=== PATIENT | female | born 1975 | race Caucasian/White ===

== ENCOUNTER 2018-08-07 21:40 | Emergency (ER) | payer BC ==
[2018-08-07] MEDS ORDERED: Ketorolac 60 MG/2 ML SDV IM ONE (22:03)
[2018-08-07] MEDS ORDERED: traMADol 50 MG Tab PO ONE (22:34)
--- NOTE | 2018-08-07 22:42 | EDM.PDOC ---
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 for the weekend alcohol on breath R anterior & lateral rib Pain Score (Numeric/FACES): 10 - Related Data Allergies Allergy/AdvReac Type Severity Reaction Status Date / Time No Known Allergies Allergy Verified 08/07/18 21:49 Home Meds: Home Meds SUMAtriptan 100 mg PO DAILY PRN 04/18/14 [History] traMADol HCl [Tramadol HCl] 50 mg PO Q6H PRN #8 tablet 08/07/18 [Rx] Past Medical History Genitourinary History: Reports: None 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: Musculoskeletal History: Reports: Fracture Other Musculoskeletal History: hx R wrist fx Neurological History: Reports: Cerebral Aneurysms, Migraines Endocrine/Metabolic History: Reports: Obesity/BMI 30+ - Infectious Disease History Infectious Disease History: Reports: Chicken Pox - Past Surgical History HEENT Surgical History: Reports: Adenoidectomy, Tonsillectomy Female Surgical History: Reports: Tubal Ligation Neurological Surgical History: Reports: None Musculoskeletal Surgical History: Reports: None Social & Family History - Family History Family Medical History: Noncontributory - Tobacco Use Smoking Status *Q: Current Every Day Smoker Years of Tobacco use: 20 Packs/Tins Daily: 1 - Caffeine Use Caffeine Use: Reports: Energy Drinks, Soda - Alcohol Use Days Per Week of Alcohol Use: 7 Number of Drinks Per Day: 2 Total Drinks Per Week: 14 - Recreational Drug Use Recreational Drug Use: No ED ROS GENERAL - Review of Systems Review Of Systems: See Below Constitutional: Reports: No Symptoms HEENT: Reports: No Symptoms Respiratory: Reports: No Symptoms Cardiovascular: Reports: No Symptoms Endocrine: Reports: No Symptoms GI/Abdominal: Reports: No Symptoms : Reports: No Symptoms Musculoskeletal: Reports: Other (rib pain) Skin: Reports: No Symptoms Neurological: Reports: No Symptoms Psychiatric: Reports: No Symptoms Hematologic/Lymphatic: Reports: No Symptoms Immunologic: Reports: No Symptoms ED EXAM, GENERAL - Physical Exam Exam: See Below Exam Limited By: No Limitations General Appearance: Alert, WD/WN, Mild Distress Head: Atraumatic, Normocephalic Neck: Normal Inspection, Supple, Non-Tender, Full Range of Motion Respiratory/Chest: No Respiratory Distress, Lungs Clear, Normal Breath Sounds, No Accessory Muscle Use, Chest Non-Tender Cardiovascular: Regular Rate, Rhythm, Other (1+ tender across the lower 25% of the R chest laterally, no STS, no ecchymosis, not localized, sitting awkwardly in w/c, holding hand over side, using ice pack) Course - Vital Signs Last Recorded V/S: Last Vital Signs Temp 36.6 C 08/07/18 21:40 Pulse 95 08/07/18 21:40 Resp 20 08/07/18 21:40 BP 137/62 08/07/18 21:40 Pulse Ox 97 08/07/18 21:40 - Orders/Labs/Meds Orders: Active Orders 24 hr Category Date Time Status Ribs 2V w Chest Rt [CR] Stat Exams 08/07/18 21:58 Taken traMADol [Ultram] Med 08/07/18 22:34 Once 50 mg PO ONETIME ONE Meds: Medications Discontinued Medications Generic Name Dose Route Start Last Admin Trade Name Freq PRN Reason Stop Dose Admin Ketorolac Tromethamine 60 mg 08/07/18 22:03 08/07/18 22:09 Toradol IM 08/07/18 22:04 60 mg ONETIME ONE Administration Departure - Departure Time of Disposition: 22:35 Disposition: Home, Self-Care 01 Condition: Good Clinical Impression: Contusion of rib on right side - Discharge Information *PRESCRIPTION DRUG MONITORING PROGRAM REVIEWED*: Not Applicable *COPY OF PRESCRIPTION DRUG MONITORING REPORT IN PATIENT KENZIE: Not Applicable Prescriptions: traMADol HCl [Tramadol HCl] 50 mg PO Q6H PRN #8 tablet PRN Reason: Pain Instructions: Rib Contusion, Cryotherapy Referrals: Jorge Son MD [Primary Care Provider] - Forms: ED Department Discharge, ED Return to Work/School Form Additional Instructions: For pain and inflammation, take ibuprofen 200 mg 3 tabs and acetaminophen 500 mg 2 tabs 4 times a day for 2 days, longer if needed. For pain, take tramadol 50 mg 1 tab every 6 hours as needed. No alcohol. Use ice pack for 10 minutes every 2 hours for 2 days. See your doctor in 4 days. No work tomorrow. Call your Physician or Return to Emergency Department if: * Your condition worsens in any way. * You develop fever greater than 100.4. * You have vomitting that does not stop with medications. * You have pain that is not controlled with medications. - My Orders Last 24 Hours: My Active Orders 08/07/18 21:58 Ribs 2V w Chest Rt [CR] Stat 08/07/18 22:34 traMADol [Ultram] 50 mg PO ONETIME ONE - Assessment/Plan Last 24 Hours: My Active Orders 08/07/18 21:58 Ribs 2V w Chest Rt [CR] Stat 08/07/18 22:34 traMADol [Ultram] 50 mg PO ONETIME ONE
--- NOTE | 2018-08-08 10:21 | CR ---
INDICATION: Fell in shower. Pain right ribs. RIGHT RIBS WITH CHEST: PA view of the chest was obtained 08/07/18--no comparisons. The heart appeared normal in size and shape. The aorta is minimally tortuous with suggestion of minimal calcification at the arch of the aorta. An active infiltrate, effusion, contusion or pneumothorax was not identified. There is a suggestion of a mild dextroconcave scoliosis of the upper thoracic spine. Increased density is noted overlying the first rib manuveal junctions right greater then left. IMPRESSION: No acute process. RIGHT RIBS: Three views of the right ribs were obtained 08/07/18--no comparisons. No displaced rib fracture or other definite bony abnormality was identified. If occult fracture site is suspected clinically, re-examination in 10-14 days may be helpful. [facility]
== END 2018-08-07 22:46 | disposition home or self-care (01) ==
LOC: FB.ED 21:40
DX: S20.211A Contusion of right front wall of thorax, initial encounter (principal); F17.210 Nicotine dependence, cigarettes, uncomplicated; Z79.899 Other long term (current) drug therapy; Z90.89 Acquired absence of other organs; Z98.890 Other specified postprocedural states; Z98.51 Tubal ligation status; W18.2XXA Fall in (into) shower or empty bathtub, initial encounter; Y93.89 Activity, other specified
CPT/HCPCS: 71101; 96372; 99283; A9270; J1885

== ENCOUNTER 2019-07-30 19:29 | Emergency (ER) | payer BC ==
[2019-07-30] MEDS ORDERED: methylPREDNISolone Sodium Succinate 125 MG/2 ML SDV IM ONE (19:48)
[2019-07-30] MEDS ORDERED: Albuterol/Ipratropium 3.0-0.5 MG/3 ML Neb Soln NEB ONE (19:48)
[2019-07-30] MEDS ORDERED: traMADol 50 MG Tab PO ONE (19:51)
[2019-07-30] MEDS ORDERED: Acetaminophen 500 MG Tab PO ONE (19:51)
[2019-07-30] MEDS ORDERED: Azithromycin 250 MG Tab PO ONE (20:44)
--- NOTE | 2019-07-30 20:50 | EDM.PDOC ---
ED HPI GENERAL MEDICAL PROBLEM - General Stated Complaint: SOB; COUGHING; BLADDER INFECTION Time Seen by Provider: 07/30/19 20:15 Source of Information: Reports: Patient, Family History Limitations: Reports: No Limitations - History of Present Illness INITIAL COMMENTS - FREE TEXT/NARRATIVE: Patient presented to the ED because of 1 week h/o dry cough and for the past 2 days she c/o dyspnea,denies having any fever or chills. She also c/o headache over the frontal area,throbbing,7/10. She take imitrex for her migraine but t didn't work this time. She also of increase frequency,no flank pain or dysuria. 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: Musculoskeletal History: Reports: Fracture Other Musculoskeletal History: hx R wrist fx Neurological History: Reports: Cerebral Aneurysms, Migraines Endocrine/Metabolic History: Reports: Obesity/BMI 30+ - Infectious Disease History Infectious Disease History: Reports: Chicken Pox - Past Surgical History HEENT Surgical History: Reports: Adenoidectomy, Tonsillectomy Female Surgical History: Reports: Tubal Ligation Neurological Surgical History: Reports: None Musculoskeletal Surgical History: Reports: None Social & Family History - Family History Family Medical History: Noncontributory - Caffeine Use Caffeine Use: Reports: Energy Drinks, Soda ED ROS GENERAL - Review of Systems Review Of Systems: See Below Constitutional: Denies: Fever, Chills HEENT: Reports: No Symptoms, Rhinitis Respiratory: Reports: Shortness of Breath, Wheezing, Cough. Denies: Sputum Cardiovascular: Reports: No Symptoms Endocrine: Reports: No Symptoms GI/Abdominal: Reports: No Symptoms : Reports: Frequency. Denies: Dysuria, Flank Pain Musculoskeletal: Reports: No Symptoms Skin: Reports: No Symptoms Neurological: Reports: No Symptoms Psychiatric: Reports: No Symptoms Hematologic/Lymphatic: Reports: No Symptoms Immunologic: Reports: No Symptoms ED EXAM, GENERAL - Physical Exam Exam: See Below Exam Limited By: No Limitations General Appearance: Alert, No Apparent Distress Eye Exam: Bilateral Eye: PERRL Ears: Normal External Exam, Normal Canal, Hearing Grossly Normal, Normal TMs Nose: Normal Inspection, Normal Mucosa Throat/Mouth: Normal Inspection, Normal Lips Head: Atraumatic, Normocephalic Respiratory/Chest: No Respiratory Distress, Chest Non-Tender, Rhonchi, Wheezing Cardiovascular: Normal Peripheral Pulses, Regular Rate, Rhythm, No Edema GI/Abdominal: Normal Bowel Sounds, Soft, Non-Tender, No Organomegaly, No Distention, No Abnormal Bruit Back Exam: Normal Inspection, Full Range of Motion Neurological: Alert, Oriented, CN II-XII Intact, Normal Cognition, Normal Gait, Normal Reflexes, No Motor/Sensory Deficits Psychiatric: Normal Affect, Normal Mood Skin Exam: Warm, Dry, Intact, Normal Color, No Rash Lymphatic: No Adenopathy Course - Vital Signs Text/Narrative:: cxr-neg duoneb x1 solumedrol 125 mg IM x1 tramadol 100 mg po x1 tylenol 1000 mg po x1 zithromax 500 mg po x1 - Orders/Labs/Meds Orders: Active Orders 24 hr Category Date Time Status RT Aerosol Therapy [RC] ASDIRECTED Care 07/30/19 19:49 Active Chest 2V [CR] Stat Exams 07/30/19 19:50 Taken Labs: Laboratory Tests 07/30/19 Range/Units 20:00 Urine Color Yellow (YELLOW) Urine Appearance Clear (CLEAR) Urine pH 6.5 (5.0-6.5) Ur Specific [place] 1.010 (1.010-1.025) Urine Protein Negative (NEGATIVE) mg/dL Urine Glucose (UA) Normal (NORMAL) mg/dL Urine Ketones Negative (NEGATIVE) mg/dL Urine Occult Blood Negative (NEGATIVE) Urine Nitrite Negative (NEGATIVE) Urine Bilirubin Negative (NEGATIVE) Urine Urobilinogen Normal (NEGATIVE) mg/dL Ur Leukocyte Esterase Negative (NEGATIVE) Urine RBC Not seen (0-5) Urine WBC 0-5 (0-5) Ur Squamous Epith Cells Few H (NS,R,O) Urine Bacteria Rare H (NS) Meds: Medications Discontinued Medications Generic Name Dose Route Start Last Admin Trade Name Freq PRN Reason Stop Dose Admin Acetaminophen 1,000 mg 07/30/19 19:51 07/30/19 20:14 Tylenol Extra Strength PO 07/30/19 19:52 1,000 mg ONETIME ONE Administration Albuterol/Ipratropium 3 ml 07/30/19 19:48 07/30/19 20:14 Duoneb 3.0-0.5 Mg/3 Ml NEB 07/30/19 19:49 3 ml ONETIME ONE Administration Azithromycin 500 mg 07/30/19 20:44 07/30/19 20:55 Zithromax PO 07/30/19 20:45 500 mg ONETIME ONE Administration Methylprednisolone Sodium Succinate 125 mg 07/30/19 19:48 07/30/19 20:14 Solu-Medrol IM 07/30/19 19:49 125 mg ONETIME ONE Administration Tramadol HCl 100 mg 07/30/19 19:51 07/30/19 20:14 Ultram PO 07/30/19 19:52 100 mg ONETIME ONE Administration Departure - Departure Time of Disposition: 20:45 Disposition: Home, Self-Care 01 Condition: Good Clinical Impression: Acute bronchitis - Discharge Information Prescriptions: Albuterol Sulfate [Albuterol Sulfate Hfa] 2 puff IH QID PRN #1 hfa.aer.ad PRN Reason: dyspnea and wheezing Azithromycin [Zithromax] 250 mg PO DAILY #6 tab predniSONE [Prednisone] 40 mg PO DAILY #10 tablet Instructions: Chronic Obstructive Pulmonary Disease Exacerbation, [id number] Referrals: PCP,Not In Area [Primary Care Provider] - Forms: ED Department Discharge Additional Instructions: please read discharge instructions on COPD Increase oral fluids mucinex 600 mg Twice daily for 5 days(over the counter) Z-petrona, take as directed for 5 days prednisone 20 mg, take 2 tablets once daily for 5 days albuterol inhaler, 2 puffs 4 times daily as needed for wheezing and dyspnea/ shortness of breath follow up as needed Sepsis Event Note - Focused Exam Date Exam was Performed: 07/30/19 Time Exam was Performed: 21:25 - My Orders Last 24 Hours: My Active Orders 07/30/19 19:49 RT Aerosol Therapy [RC] ASDIRECTED 07/30/19 19:50 Chest 2V [CR] Stat - Assessment/Plan Last 24 Hours: My Active Orders 07/30/19 19:49 RT Aerosol Therapy [RC] ASDIRECTED 07/30/19 19:50 Chest 2V [CR] Stat
--- NOTE | 2019-07-31 10:51 | CR ---
INDICATION: Dyspnea. CHEST, 2 VIEWS: PA and lateral views of the chest, 07/30/19, were compared with 08/07/18. The heart appeared normal in size and shape. The aorta is slightly tortuous with calcification in the arch. An active infiltrate or effusion was not identified with pulmonary markings appearing similar to the previous examination; however, there is mild bronchial wall cuffing at the lung bases, which may represent fibrosis and/or active peribronchial disease, and should be correlated clinically. Prominent AP diameter is also noted. IMPRESSION: 1. Bronchial wall cuffing - correlate clinically. 2. ASD aorta. MTDD
== END 2019-07-30 21:03 | disposition home or self-care (01) ==
LOC: FB.ED 19:29
DX: J20.9 Acute bronchitis, unspecified (principal); E66.9 Obesity, unspecified; Z68.31 Body mass index [BMI] 31.0-31.9, adult
CPT/HCPCS: 71046; 81001; 94640; 96372; 99285; A9270; J2930; J7620-GY

== ENCOUNTER 2020-01-30 09:12 | Emergency (ER) | payer BC ==
[2020-01-30] MEDS ORDERED: LORazepam 2 MG/ML SDV IM ONE (09:53)
[2020-01-30] MEDS ORDERED: Ondansetron 4 MG Tab.DIS PO ONE (09:54)
--- NOTE | 2020-01-30 10:04 | EDM.PDOC ---
ED HPI GENERAL MEDICAL PROBLEM - General Chief Complaint: Behavioral/Psych Stated Complaint: ANXIETY Time Seen by Provider: 01/30/20 09:30 Source of Information: Reports: Patient History Limitations: Reports: No Limitations - History of Present Illness INITIAL COMMENTS - FREE TEXT/NARRATIVE: c/o anxiety pt states she was staying in her camper with her , they had a verbal argument last night "around little things", she said that he was controlling she was unable to sleep, her brother drove her to the ED, she is requesting a refill of clonazepam which she has used in the past as she has run out [facility] shows no fills of clonazepam, only a cough med is listed in [facility] in past yr pt states she had taken Celexa for 1-2w in past but it caused nausea, states she has some nausea now has not been in counseling in past rarely uses alcohol, neither pt or were drinking last night smokes [address], [address] 3rd marriage, has several grandchildren and step grandchildren 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, 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 says Dr Pettit (and others) have given her clonazepam in the past - Related Data Allergies Allergy/AdvReac Type Severity Reaction Status Date / Time No Known Allergies Allergy Verified 07/30/19 20:48 Home Meds: Home Meds Albuterol Sulfate [Albuterol Sulfate Hfa] 2 puff IH QID PRN #1 hfa.aer.ad 07/30/19 [Rx] Azithromycin [Zithromax] 250 mg PO DAILY #6 tab 07/30/19 [Rx] Escitalopram Oxalate [Lexapro] 20 mg PO DAILY 07/30/19 [History] predniSONE [Prednisone] 40 mg PO DAILY #10 tablet 07/30/19 [Rx] clonazePAM [Clonazepam] 0.5 mg PO BID PRN #12 tablet 01/30/20 [Rx] Past Medical History Genitourinary History: Reports: None 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: Musculoskeletal History: Reports: Fracture Other Musculoskeletal History: hx R wrist fx Neurological History: Reports: Cerebral Aneurysms, Migraines Psychiatric History: Reports: Anxiety Endocrine/Metabolic History: Reports: Obesity/BMI 30+ - Infectious Disease History Infectious Disease History: Reports: Chicken Pox - Past Surgical History HEENT Surgical History: Reports: Adenoidectomy, Tonsillectomy Female Surgical History: Reports: Tubal Ligation Neurological Surgical History: Reports: None Musculoskeletal Surgical History: Reports: None Social & Family History - Family History Family Medical History: Noncontributory - Tobacco Use Smoking Status *Q: Current Every Day Smoker Years of Tobacco use: 20 Packs/Tins Daily: 1 - Caffeine Use Caffeine Use: Reports: Coffee, Soda - Recreational Drug Use Recreational Drug Use: No ED ROS GENERAL - Review of Systems Review Of Systems: See Below Constitutional: Reports: No Symptoms HEENT: Reports: No Symptoms Respiratory: Reports: No Symptoms Cardiovascular: Reports: No Symptoms Endocrine: Reports: No Symptoms GI/Abdominal: Reports: Nausea : Reports: No Symptoms Musculoskeletal: Reports: No Symptoms Skin: Reports: No Symptoms Neurological: Reports: No Symptoms. Denies: Headache Psychiatric: Reports: Anxiety. Denies: Suicidal Ideation Hematologic/Lymphatic: Reports: No Symptoms Immunologic: Reports: No Symptoms ED EXAM, GENERAL - Physical Exam Exam: See Below Exam Limited By: No Limitations General Appearance: Alert, WD/WN, Anxious, Other (visibly anxious, shaking slightly) Eye Exam: Bilateral Eye: EOMI, PERRL Nose: Normal Inspection, Normal Mucosa, No Blood Throat/Mouth: Normal Voice, No Airway Compromise Head: Atraumatic, Normocephalic Neck: Normal Inspection, Supple, Non-Tender, Full Range of Motion Respiratory/Chest: No Respiratory Distress, Lungs Clear, Normal Breath Sounds, No Accessory Muscle Use, Chest Non-Tender Cardiovascular: Regular Rate, Rhythm, No Edema, No Gallop, No Murmur, No Rub GI/Abdominal: Soft, Non-Tender, No Distention Back Exam: Normal Inspection, Full Range of Motion, NT Extremities: Normal Inspection, Normal Range of Motion, Non-Tender, No Pedal Edema Neurological: Alert, Oriented, CN II-XII Intact, Normal Cognition, No Motor/Sensory Deficits Psychiatric: Other (no SI/HI, no hallucinations, no delusions, concrete, limited insight, no willing to discuss stressors) Skin Exam: Warm, Dry, Intact, Normal Color, No Rash Lymphatic: No Adenopathy Course - Vital Signs Last Recorded V/S: Last Vital Signs Temp 36.8 C 01/30/20 09:12 Pulse 103 H 01/30/20 09:12 Resp 16 01/30/20 09:12 BP 123/80 01/30/20 09:12 Pulse Ox 99 01/30/20 09:12 - Orders/Labs/Meds Meds: Medications Discontinued Medications Generic Name Dose Route Start Last Admin Trade Name Gustavo PRN Reason Stop Dose Admin Lorazepam 1 mg 01/30/20 09:53 Ativan IM 01/30/20 09:54 ONETIME ONE Ondansetron HCl 4 mg 01/30/20 09:54 Zofran Odt PO 01/30/20 09:55 ONETIME ONE - Re-Assessments/Exams Free Text/Narrative Re-Assessment/Exam: 01/30/20 10:19 strongly encouraged to obtain counseling, feeling better after Ativan and Zofran Departure - Departure Time of Disposition: 09:55 Disposition: Home, Self-Care 01 Condition: Good Clinical Impression: Anxiety - Discharge Information *PRESCRIPTION DRUG MONITORING PROGRAM REVIEWED*: Yes *COPY OF PRESCRIPTION DRUG MONITORING REPORT IN PATIENT KENZIE: Yes Prescriptions: clonazePAM [Clonazepam] 0.5 mg PO BID PRN #12 tablet PRN Reason: Anxiety Instructions: Living With Anxiety Referrals: Jorge Son MD [Primary Care Provider] - Additional Instructions: For anxiety, take clonazepam 0.5 mg one tab every 12 hours as needed. No alcohol. For anxiety, a longer term medication can help with mood stabilization as well. For 2 weeks, take buspirone 5 mg 1 tab 2 times a day. May take along with the clonazepam. A prescription for buspirone was called in to [facility]. Short term counseling with a therapist can help develop strategies around anxiety, communication and relationships. [facility] can be a good option. See Dr Pettit in 3-4 days for further evaluation and recommendations. Return to Emergency Department if you feel worse or feel unsafe towards yourself or others. Sepsis Event Note (ED) - Evaluation Sepsis Screening Result: No Definite Risk - Focused Exam Vital Signs: Vital Signs Temp Pulse Resp BP Pulse Ox 01/30/20 09:12 36.8 C 103 H 16 123/80 99
== END 2020-01-30 10:20 | disposition home or self-care (01) ==
LOC: FB.ED 09:12
DX: F41.9 Anxiety disorder, unspecified (principal); E66.9 Obesity, unspecified; F17.210 Nicotine dependence, cigarettes, uncomplicated; Z68.30 Body mass index [BMI] 30.0-30.9, adult; Z79.899 Other long term (current) drug therapy
CPT/HCPCS: 96372; 99283; A9270; J2060

== ENCOUNTER 2022-04-01 19:47 | Emergency (ER) | payer BC ==
[2022-04-01] MEDS ORDERED: Albuterol/Ipratropium 3.0-0.5 MG/3 ML Neb Soln NEB ONE (20:00)
[2022-04-01 20:34] LABS: ESTIMATED GFR 116 mL/min (>60)
== END 2022-04-01 21:20 | disposition home or self-care (01) ==
LOC: FB.ED 19:47
DX: R06.02 Shortness of breath (principal); E66.9 Obesity, unspecified; Z68.28 Body mass index [BMI] 28.0-28.9, adult; Z20.822 Contact with and (suspected) exposure to COVID-19
CPT/HCPCS: 36415; 71045; 80053; 85025; 94640; 99285; J7620; U0002

== ENCOUNTER 2022-06-10 17:47 | Emergency (ER) | payer BC ==
[2022-06-10] MEDS ORDERED: Fluconazole 150 MG Tab PO ONE (18:19)
== END 2022-06-10 18:55 | disposition home or self-care (01) ==
LOC: FB.ED 17:47
DX: H60.91 Unspecified otitis externa, right ear (principal); B37.31 Acute candidiasis of vulva and vagina; E66.9 Obesity, unspecified; Z68.25 Body mass index [BMI] 25.0-25.9, adult; F17.210 Nicotine dependence, cigarettes, uncomplicated; Z79.899 Other long term (current) drug therapy
CPT/HCPCS: 81001; 99283; A9270

== ENCOUNTER 2023-04-27 20:00 | Emergency (ER) | payer BC | END 2023-04-27 20:31 | disposition home or self-care (01) | LOC: FB.ED 20:00 | DX: S61.210A Laceration without foreign body of right index finger without damage to nail, initial encounter (principal); S61.230A Puncture wound without foreign body of right index finger without damage to nail, initial encounter; F17.210 Nicotine dependence, cigarettes, uncomplicated; E66.9 Obesity, unspecified; Z79.899 Other long term (current) drug therapy; Z68.29 Body mass index [BMI] 29.0-29.9, adult; W26.8XXA Contact with other sharp object(s), not elsewhere classified, initial encounter | CPT/HCPCS: 99282 ==